=== PATIENT | male | born 1945 | race African-American/Black ===

== ENCOUNTER 2017-12-24 08:47 | Inpatient (IN) | payer MEDICARE, OTHER ==
[2017-12-24] MEDS ORDERED: HYDROMORPHONE HCL INJ/PF 2 MG/ML AMPULE IV ONE (10:06)
--- NOTE | 2017-12-24 10:17 | ER Document Report ---
ED General <GEETA LOPEZ - Last Filed: 12/24/17 14:02> - General Information source: Patient TRAVEL OUTSIDE OF THE [place] IN LAST 30 DAYS: No <LIANG BOWMAN - Last Filed: 12/24/17 14:12> - General Chief Complaint: Numbness Stated Complaint: RIGHT ARM NUMBNESS Time Seen by Provider: 12/24/17 09:54 Notes: 72-year-old male who presents to the emergency department today with complaints of a fall that occurred prior to arrival. Patient states he was sitting on the toilet and attempted to get up and he just fell forward. Patient states he had no symptoms prior to this fall. Patient states he was not injured in this fall. Patient states that because of the fall he decided to come in today for things that have been happening for the last week. Patient goes on to mention that he has had shortness of breath for 1 week. (LIANG BOWMAN) - Related Data Allergies/Adverse Reactions: No Known Allergies Allergy (Verified 12/24/17 09:51) Past Medical History - General Information source: Patient - Social History Smoking Status: Never Smoker Cigarette use (# per day): No Frequency of alcohol use: Rare Drug Abuse: None Lives with: Family Family History: Reviewed & Not Pertinent Patient has suicidal ideation: No Patient has homicidal ideation: No - Past Medical History Cardiac Medical History: Reports: Hx Hypercholesterolemia, Hx Hypertension Endocrine Medical History: Reports: Hx Diabetes Mellitus Type 2 GI Medical History: Reports: Hx Hiatal Hernia Past Surgical History: Reports: Hx Orthopedic Surgery - left knee replacement - Immunizations Hx Diphtheria, Pertussis, Tetanus Vaccination: Yes Hx Pneumococcal Vaccination: 02/20/11 <LIANG BOWMAN - Last Filed: 12/24/17 14:12> Review of Systems - Review of Systems Constitutional: No symptoms reported EENT: No symptoms reported Cardiovascular: No symptoms reported Respiratory: See HPI, Short of breath Gastrointestinal: No symptoms reported Genitourinary: No symptoms reported Male Genitourinary: No symptoms reported Musculoskeletal: No symptoms reported Skin: No symptoms reported Hematologic/Lymphatic: No symptoms reported Neurological/Psychological: See HPI, Other - intermittent right hand numbness -: Yes All other systems reviewed and negative <LIANG BOWMAN - Last Filed: 12/24/17 14:12> Physical Exam <GEETA LOPEZ - Last Filed: 12/24/17 14:02> <LIANG BOWMAN - Last Filed: 12/24/17 14:12> - Vital signs Vitals: Temp Pulse Resp BP Pulse Ox 97.7 F 94 22 H 109/52 L 95 12/24/17 09:00 12/24/17 09:00 12/24/17 09:00 12/24/17 09:00 12/24/17 09:00 - Notes Notes: Physical Exam: General: Alert, morbidly obese. HEENT: Normocephalic. Atraumatic. PERRL. Extraocular movements intact. Oropharynx clear. Neck: Supple. Non-tender. Respiratory: Mild respiratory distress. Tachypneic with wheezing and rhonchi with forced cough. Cardiovascular: Regular rate and rhythm. Abdominal: Obese. Non-tender. No distension. Normal Bowel Sounds. Back: Non-tender. No deformity or step off. Extremities: Moves all four extremities. Upper extremities: Normal inspection. Normal ROM. Lower extremities: Trace lower extremity edema. Normal ROM. Neurological: Normal cognition. AAOx4. Normal speech. Psychological: Normal affect. Normal Mood. Skin: Warm. Dry. Normal color. (LIANG BOWMAN) Course - Laboratory Result Diagrams: 12/24/17 10:10 12/24/17 10:10 - Diagnostic Test Radiology reviewed: Reports reviewed - Large right upper lobe airspace disease worrisome for pneumonia, possibly postobstructive due to hilar or endobronchial lesion - EKG Interpretation by Me EKG shows normal: Sinus rhythm, [place], Intervals, QRS Complexes, ST-T Waves Rate: Normal - 93 Rhythm: NSR, PVC's [place]/QRS: RBBB, LPHB/LPFB When compared to previous EKG there are: Previous EKG unavailable - Consults Dr. Armas Time consulted: 12:35 Consulted provider: other - He is currently at lunch. When he gets back to the office in 1 hour, he will call me with the patient's most recent lab work that was done last week. <GEETA LOPEZ - Last Filed: 12/24/17 14:02> - Laboratory Result Diagrams: 12/24/17 10:10 12/24/17 10:10 <LIANG BOWMAN - Last Filed: 12/24/17 14:12> - Vital Signs Vital signs: Temp Pulse Resp BP Pulse Ox 97.8 F 94 24 H 94/67 L 98 12/24/17 12:43 12/24/17 09:00 12/24/17 12:01 12/24/17 12:00 12/24/17 12:01 - Laboratory Laboratory results interpreted by me: 12/24/17 12/24/17 12/24/17 10:10 10:10 10:10 WBC 12.0 H Hgb 11.8 L Hct 36.8 L MCH 26.6 L RDW 14.5 H Seg Neutrophils % 85.1 H Lymphocytes % 6.9 L Absolute Neutrophils 10.2 H D-Dimer 2.16 H BUN 52 H Creatinine 3.84 H Est GFR ( Amer) 19 L Est GFR (Non-Af Amer) 16 L Glucose 74 L Direct Bilirubin 0.5 H AST 86 H Creatine Kinase 773 H CK-MB (CK-2) NT-Pro-B Natriuret Pep 12/24/17 12/24/17 12/24/17 10:10 12:55 12:55 WBC Hgb Hct MCH RDW Seg Neutrophils % Lymphocytes % Absolute Neutrophils D-Dimer BUN Creatinine Est GFR ( Amer) Est GFR (Non-Af Amer) Glucose Direct Bilirubin AST Creatine Kinase 736 H CK-MB (CK-2) 8.46 H 10.90 H NT-Pro-B Natriuret Pep 2700 H Critical Care Note - Critical Care Note Total time excluding time spent on procedures (mins): 40 <GEETA LOPEZ - Last Filed: 12/24/17 14:02> Discharge - Discharge Admitting Provider: Armas Unit Admitted: [facility] <GEETA LOPEZ - Last Filed: 12/24/17 14:02> <LIANG BOWMAN - Last Filed: 12/24/17 14:12> - Discharge Clinical Impression: Dyspnea on exertion, Non-STEMI (non-ST elevated myocardial infarction), Dehydration Accident due to mechanical fall without injury Qualifiers: Encounter type: initial encounter Qualified Code(s): W19.XXXA - Unspecified fall, initial encounter Acute renal failure Qualifiers: Acute renal failure type: unspecified Qualified Code(s): N17.9 - Acute kidney failure, unspecified Chronic renal insufficiency Qualifiers: Chronic kidney disease stage: stage 3 (moderate) Qualified Code(s): N18.3 - Chronic kidney disease, stage 3 (moderate) Hypotension Qualifiers: Hypotension type: unspecified hypotension type Qualified Code(s): I95.9 - Hypotension, unspecified Condition: Stable Disposition: ADMITTED INPATIENT Referrals: MARILYN ARMAS MD [Primary Care Provider] - Follow up as needed Scribe Attestation: 12/24/17 10:38 I personally performed the services described in the documentation, reviewed and edited the documentation which was dictated to the scribe in my presence, and it accurately records my words and actions. (GEETA LOPEZ) Scribe Documentation - Scribe Written by Scrfrancae:: Ines Trivedi, 12/24/2017 1412 acting as scribe for :: Harrison <LIANG BOWMAN - Last Filed: 12/24/17 14:12>
[2017-12-24 10:34] LABS: ABSOLUTE LYMPHOCYTES (AUTO) 0.8 10^3/uL (0.5-4.7); ABSOLUTE MONOCYTES (AUTO) 0.9 10^3/uL (0.1-1.4); ABSOLUTE NEUT (AUTO) 10.2 10^3/uL (1.7-8.2); BASOPHILS % (AUTO) 0.1 % (0-2); HEMATOCRIT 36.8 % (37.9-51.0); HEMOGLOBIN 11.8 g/dL (13.5-17.0); LYMPHOCYTES % (AUTO) 6.9 % (13-45); MEAN CORPUSCULAR HEMOGLOBIN 26.6 pg (27.0-33.4); MEAN CORPUSCULAR HGB CONC 32.1 g/dL (32.0-36.0); MEAN CORPUSCULAR VOLUME 83 fl (80-97); MONOCYTES % (AUTO) 7.9 % (3-13); PLATELET COUNT 221 10^3/uL (150-450); RED BLOOD COUNT 4.45 10^6/uL (4.35-5.55); RED CELL DISTRIBUTION WIDTH 14.5 % (11.5-14.0); SEGMENTED NEUTROPHILS % (AUTO) 85.1 % (42-78); TOTAL CELLS COUNTED % (AUTO) 100 %
--- NOTE | 2017-12-24 10:47 | RADIOLOGY REPORT (SQ) ---
EXAM DESCRIPTION: CHEST SINGLE VIEW COMPLETED DATE/TIME: 12/24/2017 10:33 am REASON FOR STUDY: SOB, SANTOS COMPARISON: 03/24/2011 EXAM PARAMETERS: NUMBER OF VIEWS: One view. TECHNIQUE: Single frontal radiographic view of the chest acquired. RADIATION DOSE: NA LIMITATIONS: AP portable lordotic film FINDINGS: LUNGS AND PLEURA: Diffuse airspace disease throughout the right upper lobe worrisome for p neumonia. This should be followed to radiographic clearing, to exclude postobstructive pneumonia fro m right hilar or endobronchial lesion. Remainder of the lungs are well inflated and clear. No pleural effusion. No pneumothorax. MEDIASTINUM AND HILAR STRUCTURES: Grossly normal, AP portable film HEART AND VASCULAR STRUCTURES: Heart normal in size. Normal vasculature. BONES: No acute findings. HARDWARE: None in the chest. OTHER: No other significant finding. IMPRESSION: Diffuse right upper lobe airspace disease worrisome for pneumonia. This should be follo wed to radiographic clearing, to exclude postobstructive pneumonia from right hilar or endobronchial lesion TECHNICAL DOCUMENTATION: JOB ID: [id number] [address]- All Rights Reserved Reading location - IP/workstation name: [email or web address]
[2017-12-24 10:52] LABS: ALANINE AMINOTRANSFERASE 57 U/L (21-72); ALBUMIN 3.7 g/dL (3.5-5.0); ALKALINE PHOSPHATASE 74 U/L (38-126); ANION GAP 16 (5-19); ASPARTATE AMINO TRANSFERASE 86 U/L (17-59); BILIRUBIN,DIRECT 0.5 mg/dL (0.0-0.4); BILIRUBIN,TOTAL 0.5 mg/dL (0.2-1.3); BLOOD UREA NITROGEN 52 mg/dL (7-20); CALCIUM 8.9 mg/dL (8.4-10.2); CARBON DIOXIDE 22 mmol/L (22-30); CHLORIDE 100 mmol/L (98-107); CREATINE KINASE 773 U/L (55-170); GLUCOSE 74 mg/dL (75-110); POTASSIUM 4.1 mmol/L (3.6-5.0); SODIUM 137.5 mmol/L (137-145); TOTAL PROTEIN 7.3 g/dL (6.3-8.2)
[2017-12-24] MEDS ORDERED: IPRATROPIUM/ALBUTEROL 0.5-2.5 MG/3 ML AMPUL NEB ONE (10:55)
[2017-12-24 11:03] LABS: CREATINE KINASE MB 8.46 ng/mL (<4.55)
[2017-12-24 11:05] LABS: TROPONIN I 0.515 ng/mL
[2017-12-24] MEDS ORDERED: LEVOFLOXACIN 750 MG/D5W RTU 750 MG/150 ML RTUPB IV ONE (11:31)
[2017-12-24] MEDS ORDERED: NORMAL SALINE 1000 ML 1,000 ML IV ONE (12:39)
[2017-12-24] MEDS ORDERED: ALBUTEROL SULFATE 0.083% NEB 2.5 MG/3 ML AMPUL NEB ONE (12:39)
--- NOTE | 2017-12-24 12:42 | EKG REPORT ---
SEVERITY:- ABNORMAL ECG - SINUS RHYTHM NONSPECIFIC INFERIOR ST CHANGES RBBB AND LPFB : Confirmed by: Will Marquez MD 24-Dec-2017 12:41:35
[2017-12-24 13:43] LABS: CREATINE KINASE MB 10.9 ng/mL (<4.55); TROPONIN I 0.58 ng/mL
[2017-12-24] MEDS ORDERED: ENOXAPARIN SODIUM INJ 150 MG/1 ML DISP.SYRIN SUBCUT ONE (14:00)
[2017-12-24] MEDS ORDERED: CEFTRIAXONE 1 GM/D5W RTU 50 ML IV SCH (15:00)
[2017-12-24] MEDS: 1/2 NORMAL SALINE 1,000 ML IV PRN (15:29)
--- NOTE | 2017-12-24 15:46 | RADIOLOGY REPORT (SQ) ---
EXAM DESCRIPTION: NM LUNG VENT/PERF SCAN COMPLETED DATE/TIME: 12/24/2017 3:25 pm REASON FOR STUDY: Elevated d-dimer, dyspnea on exertion COMPARISON: Chest x-ray 12/24/2017 RADIONUCLIDE AND DOSE: 5 millicuries TC-99m MAA Intravenous 30 millicuries TC-99m DTPA Inhaled aerosol TECHNIQUE: Eight views of the lungs acquired post ventilation of DTPA aerosol. Eight matching views of the lungs acquired following injection of MAA. LIMITATIONS: None. FINDINGS: VENTILATION: There is decreased ventilation in the the right upper lobe corresponding to t he infiltrate seen on the chest x-ray. PERFUSION: There is slightly decreased for effusion in the right upper lobe. OTHER: No other significant finding. IMPRESSION: 1. There is decreased ventilation and perfusion in the right upper lobe that appears to correspond to the infiltrates seen on the chest x-ray. 2. There is a low probability of pulmonary embolus. TECHNICAL DOCUMENTATION: JOB ID: [id number] [employer]- All Rights Reserved Reading location - IP/workstation name: [email or web address]
[2017-12-24 17:57] LABS: AMORPHOUS SEDIMENT,URINE TRACE /HPF; APPEARANCE,URINE SLIGHTLY-CLOUDY; BILIRUBIN,URINE NEGATIVE (NEGATIVE); COLOR,URINE YELLOW; GLUCOSE, URINE NEGATIVE (NEGATIVE); KETONES,URINE NEGATIVE (NEGATIVE); LEUKOCYTE ESTERASE,URINE NEGATIVE (NEGATIVE); NITRITE,URINE NEGATIVE (NEGATIVE); PROTEIN,URINE 30 mg/dL (NEGATIVE); URINE SPECIFIC GRAVITY 1.011; UROBILINOGEN,URINE NEGATIVE mg/dL (<2.0)
[2017-12-24] MEDS ORDERED: CEFTRIAXONE SODIUM 1,000 MG in NORMAL SALINE 50 ML IV SCH (18:00)
[2017-12-24] MEDS: BUSPIRONE HCL 10 MG TABLET PO SCH (20:13)
[2017-12-24] MEDS ORDERED: ATORVASTATIN CALCIUM 40 MG TABLET PO SCH (22:00)
--- NOTE | 2017-12-24 23:09 | RADIOLOGY REPORT (SQ) ---
EXAM DESCRIPTION: CT HEAD WITHOUT IV CONTRAST COMPLETED DATE/TME: 12/24/2017 00:00 CLINICAL HISTORY: 72 years, Male, Rule out CVA. Additional provided history of right hemiparesis that started today at 3 pm. COMPARISON: 03/24/2011 TECHNIQUE: Contiguous axial images of the brain were obtained without the administration of intravenous contrast. Images stored on PACS. All CT scanners at this facility use dose modulation, iterative reconstruction, and/or weight based dosing when appropriate to reduce radiation dose to as low as reasonably achievable (ALARA). [facility]: Dose Right [facility]: CareDose [facility]: Dose Right [facility]: Teradose 4D [facility]: Firmafon LIMITATIONS: Patient motion FINDINGS: Brain: No acute intracranial hemorrhage. No territorial infarct. No mass effect. Mild cerebral atrophy. Mild periventricular and subcortical white matter hypodensity most suggestive of small vessel disease. Ventricles: Accounting for underlying cerebral atrophy, ventricular size appears within normal limits. Bones: No acute osseous finding. Paranasal sinuses: Well aerated. Mastoid air cells: Well aerated. Soft tissues: Within normal limits Weatherization Operations Manager view shows no additional significant finding IMPRESSION: 1. No acute intracranial finding. If high clinical suspicion for acute ischemia and if clinically indicated, consider additional imaging with brain MRI. 2. Cerebral atrophy and parenchymal findings suggesting chronic small vessel disease. Findings were discussed by Dr. Jeison Tian via telephone with MARILYN LLOYD MD on 12/24/2017 10:02 PM CDT. TECHNICAL DOCUMENTATION: Quality ID # 436: Final reports with documentation of one or more dose reduction techniques (e.g., Automated exposure control, adjustment of the mA and/or kV according to patient size, use of iterative reconstruction technique) 2010 [employer]- All Rights Reserved
--- NOTE | 2017-12-24 23:21 | PDOC H&P ---
History of Present Illness Admission Date/PCP: MARILYN LLOYD MD Patient complains of: 1w dyspnea. fell into tub at 7am History of Present Illness: CAROLYN CHOPRA is a 72 year old male with diabetes who stood up from toilet and fell face first into tub. He was unable to get up. ER noted RML pneumonia and NSTEmi. He received levaquin. Lovenox was started at 2pm. noted slurred speech and R hand clumsiness around 3pm. I ordered buspar for anxiety at 8pm. I was called about R hemiparesis at 10pm. Past Medical History Cardiac Medical History: Reports: Hyperlipidema, Hypertension Pulmonary Medical History: Denies: Tuberculosis Neurological Medical History: Reports: None Endocrine Medical History: Reports: Diabetes Mellitus Type 2 Renal/ Medical History: Reports: Chronic Kidney Disease Malignancy Medical History: Reports: None GI Medical History: Reports: Hiatal Hernia Musculoskeltal Medical History: Reports: None Psychiatric Medical History: Reports: None Past Surgical History Past Surgical History: Reports: Orthopedic Surgery - left knee replacement Denies: Pacemaker Social History Smoking Status: Current Some Day Smoker Hx Recreational Drug Use: No Hx Prescription Drug Abuse: No Family History Family History: DM, Hyperlipidemia, Hypertension Parental Family History Reviewed: Yes Children Family History Reviewed: Yes Sibling(s) Family History Reviewed.: Yes Medication/Allergy Home Medications: Allopurinol [Zyloprim] 300 mg PO DAILY 12/24/17 Amlodipine Besylate [Norvasc 5 mg Tablet] 5 mg PO DAILY 12/24/17 Aspirin [Ecotrin] 81 mg PO DAILY 12/24/17 Glimepiride [Amaryl 4 mg Tablet] 4 mg PO DAILY 12/24/17 Losartan/Hydrochlorothiazide [Losartan-Hctz 100-25 mg Tab] 1 tab PO DAILY Naproxen/Esomeprazole Mag [Vimovo Dr 500-20 mg Tablet] 1 tab PO Q12 12/24/17 Rosuvastatin Calcium [Crestor] 40 mg PO DAILY 12/24/17 Allergies/Adverse Reactions: No Known Allergies Allergy (Verified 12/24/17 09:51) Review of Systems ROS unobtainable: Due to mental status Physical Exam Vital Signs: Temp Pulse Resp BP Pulse Ox 97.8 F 94 24 H 94/67 L 98 12/24/17 12:43 12/24/17 09:00 12/24/17 12:01 12/24/17 12:00 12/24/17 12:01 Intake & Output 12/23/17 12/24/17 12/25/17 07:59 07:59 07:59 Intake Total 1470 Balance 1470 Weight 294 lb 15.656 oz General appearance: PRESENT: mild distress Eye exam: PRESENT: EOMI. ABSENT: conjunctival injection, nystagmus, scleral icterus Mouth exam: PRESENT: moist, tongue midline Neck exam: ABSENT: lymphadenopathy, meningismus, tenderness, thyromegaly, tracheal deviation Respiratory exam: ABSENT: clear to auscultation hoang Cardiovascular exam: ABSENT: diastolic murmur, irregular rhythm, systolic murmur GI/Abdominal exam: ABSENT: mass, organolmegaly, tenderness Extremities exam: ABSENT: pedal edema Neurological exam: PRESENT: alert, altered, motor sensory deficit - Cant follow commands. Mild R facial droop. No gaze abnormality. Pupils equal. R arm & leg fall to bed immediately., aphasic, other - NIH:conscious0 orientation0 commands1 gaze0 steven? face1 mtrArms R3L2 mtrLegs R3L2 ataxia2+2 sensory R2 TOTAL18. ABSENT: reflexes normal - no R knee jerks Psychiatric exam: PRESENT: agitated Results Laboratory Results: 12/24/17 10:10 12/24/17 10:10 12/24/17 12/24/17 10:10 10:10 WBC 12.0 H RBC 4.45 Hgb 11.8 L Hct 36.8 L MCV 83 MCH 26.6 L MCHC 32.1 RDW 14.5 H Plt Count 221 Seg Neutrophils % 85.1 H Lymphocytes % 6.9 L Monocytes % 7.9 Eosinophils % 0.0 Basophils % 0.1 Absolute Neutrophils 10.2 H Absolute Lymphocytes 0.8 Absolute Monocytes 0.9 Absolute Eosinophils 0.0 Absolute Basophils 0.0 Sodium 137.5 Potassium 4.1 Chloride 100 Carbon Dioxide 22 Anion Gap 16 BUN 52 H Creatinine 3.84 H Est GFR ( Amer) 19 L Est GFR (Non-Af Amer) 16 L Glucose 74 L Calcium 8.9 Total Bilirubin 0.5 AST 86 H ALT 57 Alkaline Phosphatase 74 Total Protein 7.3 Albumin 3.7 12/24/17 12/24/17 12/24/17 10:10 10:10 12:55 Creatine Kinase 773 H 736 H CK-MB (CK-2) 8.46 H Troponin I 0.515 NT-Pro-B Natriuret Pep 2700 H 12/24/17 12:55 Creatine Kinase CK-MB (CK-2) 10.90 H Troponin I 0.580 NT-Pro-B Natriuret Pep Impressions: Chest X-Ray 12/24/17 10:07 IMPRESSION: Diffuse right upper lobe airspace disease worrisome for pneumonia. 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 CT normal now. Too late for tpa. Continue lovenox. (2) Non-STEMI (non-ST elevated myocardial infarction) Is this a current diagnosis for this admission?: Yes (3) Community acquired pneumonia of right upper lobe of lung Is this a current diagnosis for this admission?: Yes Plan: ceftri (4) Type 2 diabetes mellitus with diabetic chronic kidney disease Qualifiers: Diabetes mellitus manager intermediate insulin use: without group home use Chronic kidney disease stage: stage 4 (severe) Qualified Code(s): E11.22 - Type 2 diabetes mellitus with diabetic chronic kidney disease; N18.4 - Chronic kidney disease, stage 4 (severe); N18.4 - Chronic kidney disease, stage 4 (severe); N18.4 - Chronic kidney disease, stage 4 (severe); N18.4 - Chronic kidney disease , stage 4 (severe) Is this a current diagnosis for this admission?: Yes (5) Essential (primary) hypertension Is this a current diagnosis for this admission?: Yes (6) Idiopathic chronic gout of multiple sites without tophus Is this a current diagnosis for this admission?: Yes - Inpatient Certification Based on my medical assessment, after consideration of the patient's comorbidities, presenting symptoms, or acuity I expect that the services needed warrant INPATIENT care.: Yes I certify that my determination is in accordance with my understanding of Medicare's requirements for reasonable and necessary INPATIENT services [42 CFR 412.3e].: Yes Medical Necessity: Significant Comorbidiites Make Outpatient Treatment Too Risky , Need Close Monitoring Due to Risk of Patient Decompensation, Need For IV Fluids, Need For Continuous Telemetry Monitoring, Need for IV Antibiotics, Risk of Complication if Not Cared For in Hospital, Risk of Diagnosis Which Will Require Inpatient Eval/Care/Monitoring
[2017-12-24] MEDS ORDERED: DEXTROSE 40% GEL 15 GM TUBE PO PRN ×2 (23:23)
[2017-12-24] MEDS ORDERED: GLUCAGON,HUMAN RECOMB 1 MG INJ SUBCUT PRN (23:23)
[2017-12-24] MEDS ORDERED: DEXTROSE 50%-WATER 25 GM/50 ML DISP.SYRIN IV PRN (23:23)
--- NOTE | 2017-12-24 23:26 | RADIOLOGY REPORT (SQ) ---
PROCEDURE: XR CHEST 1 VIEW HISTORY: Rule out CVA COMPARISON: Chest x-ray done on the same day at 10:28 AM TECHNIQUE: The study was done on 12/24/2017 at 10:42 PM Single projection of the chest was done. FINDINGS: There is interval appearance of small infiltrate/atelectasis in the right lower lung zone. Large infiltrate/atelectasis in the left upper and midlung zone remains unchanged. There is interval appearance of tiny left-sided pleural effusion . There are no pneumothoraces The cardiomediastinal silhouette is stable. IMPRESSION: There is interval appearance of small infiltrate/atelectasis in the right lower lung zone. Large infiltrate/atelectasis in the left upper and midlung zone remains unchanged. There is interval appearance of tiny left-sided pleural effusion .
--- NOTE | 2017-12-24 23:52 | PDOC PROGRESS REPORT ---
Subjective Progress Note for:: 12/24/17 Subjective:: coma. Bs34. Speech & motor improved with d50w but not normal. Reason For Visit: PNEUMONIA,NSTEMI Physical Exam Vital Signs: Temp Pulse Resp BP Pulse Ox 97.7 F 92 24 H 120/70 95 12/24/17 18:45 12/24/17 19:00 12/24/17 18:45 12/24/17 18:45 12/24/17 18:45 Intake & Output 12/23/17 12/24/17 12/25/17 07:59 07:59 07:59 Intake Total 320 Balance 320 Weight 296 lb 15.402 oz Neurological exam: PRESENT: motor sensory deficit - R barre'+. R leg drift. Dysarthria. Results Laboratory Results: 12/24/17 17:36 Urine Color YELLOW Urine Appearance SLIGHTLY-CLOUDY Urine pH 5.0 Ur Specific David 1.011 Urine Protein 30 H Urine Glucose (UA) NEGATIVE Urine Ketones NEGATIVE Urine Blood MODERATE H Urine Nitrite NEGATIVE Ur Leukocyte Esterase NEGATIVE Urine WBC (Auto) 4 Urine RBC (Auto) 2 12/24/17 12/24/17 15:38 21:18 Troponin I 0.565 0.532 Impressions: Head CT 12/24/17 00:00 IMPRESSION: 1. No acute intracranial finding. If high clinical suspicion for acute ischemia and if clinically indicated, consider additional imaging with brain MRI. 2. Cerebral atrophy and parenchymal findings suggesting chronic small vessel disease. Findings were discussed by Dr. Jeison Tian via telephone with AMRILYN LLOYD MD on 12/24/2017 10:02 PM CDT. TECHNICAL DOCUMENTATION: Quality ID # [id number]: Final reports with documentation of one or more dose reduction techniques (e.g., Automated exposure control, adjustment of the mA and/or kV according to patient size, use of iterative reconstruction technique) 2010 [employer]- All Rights Reserved Chest X-Ray 12/24/17 10:07 IMPRESSION: Diffuse right upper lobe airspace disease worrisome for pneumonia. This should be followed to radiographic clearing, to exclude postobstructive pneumonia from right hilar or endobronchial lesion Lung Scan-VQ NM 12/24/17 14:01 IMPRESSION: 1. There is decreased ventilation and perfusion in the right upper lobe that appears to correspond to the infiltrates seen on the chest x- ray. 2. There is a low probability of pulmonary embolus. 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 Is this a current diagnosis for this admission?: Yes (2) Non-STEMI (non-ST elevated myocardial infarction) Is this a current diagnosis for this admission?: Yes (3) Community acquired pneumonia of right upper lobe of lung Is this a current diagnosis for this admission?: Yes (4) Type 2 diabetes mellitus with diabetic chronic kidney disease Qualifiers: Diabetes mellitus terminal gauger supervisor insulin use: without intermediate use Chronic kidney disease stage: stage 4 (severe) Qualified Code(s): E11.22 - Type 2 diabetes mellitus with diabetic chronic kidney disease; N18.4 - Chronic kidney disease, stage 4 (severe); N18.4 - Chronic kidney disease, stage 4 (severe); N18.4 - Chronic kidney disease, stage 4 (severe); N18.4 - Chronic kidney disease , stage 4 (severe) Is this a current diagnosis for this admission?: Yes Plan: AM glymepiride 4mg. Bs74 at 10am. Ate lunch. Had trouble eating some dinner. (5) Essential (primary) hypertension Is this a current diagnosis for this admission?: Yes (6) Idiopathic chronic gout of multiple sites without tophus Is this a current diagnosis for this admission?: Yes
[2017-12-25] MEDS: DEXTROSE 50%-WATER 25 GM/50 ML DISP.SYRIN IV PRN ×5 (00:36→16:18)
[2017-12-25] MEDS: 1/2 NORMAL SALINE 1,000 ML IV PRN (00:38)
[2017-12-25] MEDS ORDERED: IPRATROPIUM/ALBUTEROL 0.5-2.5 MG/3 ML AMPUL NEB ONE (00:56)
[2017-12-25] MEDS ORDERED: HYDRALAZINE HCL 10 MG TABLET PO PRN (01:01)
[2017-12-25] MEDS: IPRATROPIUM/ALBUTEROL 0.5-2.5 MG/3 ML AMPUL NEB PRN ×2 (01:07→06:13)
[2017-12-25] MEDS ORDERED: HYDRALAZINE HCL INJ/PF 20 MG/1 ML SDV IV PRN (01:11)
[2017-12-25 03:25] LABS: HEMATOCRIT 34.2 % (37.9-51.0); HEMOGLOBIN 11.2 g/dL (13.5-17.0); MEAN CORPUSCULAR HEMOGLOBIN 26.7 pg (27.0-33.4); MEAN CORPUSCULAR HGB CONC 32.6 g/dL (32.0-36.0); MEAN CORPUSCULAR VOLUME 82 fl (80-97); PLATELET COUNT 208 10^3/uL (150-450); RED BLOOD COUNT 4.18 10^6/uL (4.35-5.55); RED CELL DISTRIBUTION WIDTH 14.5 % (11.5-14.0); WHITE BLOOD COUNT 10.4 10^3/uL (4.0-10.5)
[2017-12-25 03:57] LABS: ANION GAP 15 (5-19); BLOOD UREA NITROGEN 54 mg/dL (7-20); CALCIUM 8.1 mg/dL (8.4-10.2); CARBON DIOXIDE 20 mmol/L (22-30); CHLORIDE 99 mmol/L (98-107); POTASSIUM 4.3 mmol/L (3.6-5.0); SODIUM 133.6 mmol/L (137-145)
[2017-12-25 04:10] LABS: GLUCOSE 39 mg/dL (75-110)
[2017-12-25] MEDS ORDERED: DEXTROSE 5%-NORMAL SALINE 1,000 ML IV PRN (05:34)
[2017-12-25] MEDS: BUSPIRONE HCL 10 MG TABLET PO SCH ×2 (05:50→16:14)
--- NOTE | 2017-12-25 07:33 | EKG REPORT ---
SEVERITY:- ABNORMAL ECG - SINUS RHYTHM RIGHT BUNDLE BRANCH BLOCK : Confirmed by: Will Marquez MD 25-Dec-2017 07:32:24
--- NOTE | 2017-12-25 08:24 | PDOC PROGRESS REPORT ---
Subjective Progress Note for:: 12/25/17 Subjective:: moving & talking better but dyspnea Reason For Visit: PNEUMONIA,NSTEMI Physical Exam Vital Signs: Temp Pulse Resp BP Pulse Ox 98.2 F 100 23 H 109/64 94 12/25/17 04:49 12/25/17 06:32 12/25/17 06:32 12/25/17 06:06 12/25/17 06:32 Intake & Output 12/24/17 12/25/17 12/26/17 07:59 07:59 07:59 Intake Total 1320 Output Total 0 Balance 1320 Weight 300 lb 0.786 oz General appearance: PRESENT: mild distress Respiratory exam: PRESENT: wheezes Cardiovascular exam: ABSENT: diastolic murmur, irregular rhythm, systolic murmur GI/Abdominal exam: ABSENT: mass, organolmegaly, tenderness Extremities exam: ABSENT: pedal edema Neurological exam: PRESENT: oriented to situation, other - grip5 [place] & dorsiflexion ok Psychiatric exam: PRESENT: anxious Results Laboratory Results: 12/25/17 03:20 12/25/17 03:20 12/24/17 12/25/17 12/25/17 17:36 03:20 03:20 WBC 10.4 RBC 4.18 L Hgb 11.2 L Hct 34.2 L MCV 82 MCH 26.7 L MCHC 32.6 RDW 14.5 H Plt Count 208 Sodium 133.6 L Potassium 4.3 Chloride 99 Carbon Dioxide 20 L Anion Gap 15 BUN 54 H Creatinine 3.92 H Est GFR ( Amer) 18 L Est GFR (Non-Af Amer) 15 L Glucose 39 L* Calcium 8.1 L Urine Color YELLOW Urine Appearance SLIGHTLY-CLOUDY Urine pH 5.0 Ur Specific [place] 1.011 Urine Protein 30 H Urine Glucose (UA) NEGATIVE Urine Ketones NEGATIVE Urine Blood MODERATE H Urine Nitrite NEGATIVE Ur Leukocyte Esterase NEGATIVE Urine WBC (Auto) 4 Urine RBC (Auto) 2 12/24/17 12/24/17 12/25/17 15:38 21:18 03:20 Troponin I 0.565 0.532 0.567 Impressions: Head CT 12/24/17 00:00 IMPRESSION: 1. No acute intracranial finding. If high clinical suspicion for acute ischemia and if clinically indicated, consider additional imaging with brain MRI. 2. Cerebral atrophy and parenchymal findings suggesting chronic small vessel disease. Findings were discussed by Dr. Jeison Tian via telephone with MARILYN LLOYD MD on 12/24/2017 10:02 PM CDT. TECHNICAL DOCUMENTATION: Quality ID # 436: Final reports with documentation of one or more dose reduction techniques (e.g., Automated exposure control, adjustment of the mA and/or kV according to patient size, use of iterative reconstruction technique) 2010 [employer]- All Rights Reserved Chest X-Ray 12/24/17 10:07 IMPRESSION: Diffuse right upper lobe airspace disease worrisome for pneumonia. This should be followed to radiographic clearing, to exclude postobstructive pneumonia from right hilar or endobronchial lesion Lung Scan-VQ NM 12/24/17 14:01 IMPRESSION: 1. There is decreased ventilation and perfusion in the right upper lobe that appears to correspond to the infiltrates seen on the chest x- ray. 2. There is a low probability of pulmonary embolus. 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 Is this a current diagnosis for this admission?: Yes Plan: sugar dropped again. D10 hung. (2) Non-STEMI (non-ST elevated myocardial infarction) Is this a current diagnosis for this admission?: Yes Plan: troponin peaked at 0.6 (3) Community acquired pneumonia of right upper lobe of lung Is this a current diagnosis for this admission?: Yes Plan: bipap. Consult Dr Whipple. (4) Type 2 diabetes mellitus with diabetic chronic kidney disease Qualifiers: Diabetes mellitus residential insulin use: without residential use Chronic kidney disease stage: stage 4 (severe) Qualified Code(s): E11.22 - Type 2 diabetes mellitus with diabetic chronic kidney disease; N18.4 - Chronic kidney disease, stage 4 (severe); N18.4 - Chronic kidney disease, stage 4 (severe); N18.4 - Chronic kidney disease, stage 4 (severe); N18.4 - Chronic kidney disease , stage 4 (severe) Is this a current diagnosis for this admission?: Yes Plan: cr3.9 inspite of hydration (5) Essential (primary) hypertension Is this a current diagnosis for this admission?: Yes (6) Idiopathic chronic gout of multiple sites without tophus Is this a current diagnosis for this admission?: Yes
[2017-12-25] MEDS ORDERED: DEXTROSE 10%-WATER 1,000 ML IV PRN (09:14)
[2017-12-25 09:46] LABS: ARTERIAL BLOOD BASE EXCESS -7.1 mmol/L; ARTERIAL BLOOD HCO3 18.9 mmol/L (20-24); ARTERIAL BLOOD O2 SATURATION 93.4 % (94-98); ARTERIAL BLOOD PCO2 39.9 mmHg (35-45); ARTERIAL BLOOD PH 7.29 (7.35-7.45); ARTERIAL BLOOD PO2 74.2 mmHg (80-100); ARTERIAL BLOOD TOTAL CO2 20.1 mmol/L (23-27)
[2017-12-25 09:54] LABS: ARTERIAL BLOOD FIO2 30%
[2017-12-25] MEDS ORDERED: ASPIRIN 81 MG TABLET, CHEWABLE PO SCH (10:00)
[2017-12-25] MEDS ORDERED: FUROSEMIDE INJ/PF 100 MG/10 ML SDV ONE (10:04)
[2017-12-25] MEDS ORDERED: MORPHINE SULFATE 10 MG/ML INJ ONE (10:05)
[2017-12-25] MEDS ORDERED: MORPHINE SULFATE 10 MG/ML INJ IV PRN (10:07)
[2017-12-25 10:14] LABS: ALANINE AMINOTRANSFERASE 58 U/L (21-72); ALBUMIN 3.3 g/dL (3.5-5.0); ALKALINE PHOSPHATASE 72 U/L (38-126); ANION GAP 15 (5-19); ASPARTATE AMINO TRANSFERASE 94 U/L (17-59); BILIRUBIN,DIRECT 0.4 mg/dL (0.0-0.4); BILIRUBIN,TOTAL 0.4 mg/dL (0.2-1.3); BLOOD UREA NITROGEN 54 mg/dL (7-20); CALCIUM 8.3 mg/dL (8.4-10.2); CARBON DIOXIDE 19 mmol/L (22-30); CHLORIDE 99 mmol/L (98-107); GLUCOSE 114 mg/dL (75-110); POTASSIUM 4.3 mmol/L (3.6-5.0); SODIUM 132.6 mmol/L (137-145); TOTAL PROTEIN 6.5 g/dL (6.3-8.2)
[2017-12-25] MEDS ORDERED: FUROSEMIDE INJ/PF 40 MG/4 ML SDV IV ONE (10:15)
[2017-12-25 10:24] LABS: CREATINE KINASE MB 34.9 ng/mL (<4.55); TROPONIN I 0.626 ng/mL
[2017-12-25] MEDS ORDERED: NITROGLYCERIN 2% OINTMENT 1 GM PACKET TP SCH (11:00)
[2017-12-25] MEDS ORDERED: ENOXAPARIN SODIUM INJ 150 MG/1 ML DISP.SYRIN SUBCUT SCH (14:00)
[2017-12-25] MEDS ORDERED: LIDOCAINE 1% INJ-PF (10 MG/ML) 30 ML SDV ONE (15:24)
--- NOTE | 2017-12-25 15:29 | PDOC TRANSFER SUMMARY ---
General Admission Date/PCP: 12/24/17 14:04 MARILYN LLOYD MD Admission Date: 12/24/17 Transfer Date: 12/25/17 Accepting Facility: [facility] Resuscitation Status: Full Code - Transfer Diagnosis (1) Community acquired pneumonia of right upper lobe of lung Is this a current diagnosis for this admission?: Yes (2) Non-STEMI (non-ST elevated myocardial infarction) Is this a current diagnosis for this admission?: Yes (3) Type 2 diabetes mellitus with diabetic chronic kidney disease Is this a current diagnosis for this admission?: Yes (4) Essential (primary) hypertension Is this a current diagnosis for this admission?: Yes (5) Idiopathic chronic gout of multiple sites without tophus Is this a current diagnosis for this admission?: Yes - Transfer Medications Home Medications: Allopurinol [Zyloprim] 300 mg PO DAILY 12/24/17 Amlodipine Besylate [Norvasc 5 mg Tablet] 5 mg PO DAILY 12/24/17 Aspirin [Ecotrin] 81 mg PO DAILY 12/24/17 Glimepiride [Amaryl 4 mg Tablet] 4 mg PO DAILY 12/24/17 Losartan/Hydrochlorothiazide [Losartan-Hctz 100-25 mg Tab] 1 tab PO DAILY Naproxen/Esomeprazole Mag [Vimovo Dr 500-20 mg Tablet] 1 tab PO Q12 12/24/17 Rosuvastatin Calcium [Crestor] 40 mg PO DAILY 12/24/17 Transfer Medications: Current Medications Albuterol/Ipratropium (Duoneb 3 Ml Ampul) 3 ml NEB RTQ6HP PRN PRN Reason: SHORTNESS OF BREATH Stop: 01/24/18 01:00 Last Admin: 12/25/17 06:13 Dose: 3 ml Aspirin (Aspirin 81 Mg Chewable Tablet) 81 mg PO DAILY [facility] Stop: 01/24/18 09:59 Last Admin: 12/25/17 10:12 Dose: Not Given Atorvastatin Calcium (Lipitor 40 Mg Tablet) 40 mg PO QHS MALA Stop: 01/23/18 21:59 Last Admin: 12/25/17 00:38 Dose: Not Given Buspirone HCl (Buspar 10 Mg Tablet) 10 mg PO Q8 MALA Stop: 01/23/18 20:29 Last Admin: 12/25/17 05:50 Dose: Not Given Dextrose (Dextrose Inj 50% Syringe (25 Gm/50 Ml)) 12.5 gm IV PRN PRN; Protocol PRN Reason: FOR BG 50-69 IN ALERT PATIENT Stop: 01/23/18 23:22 Dextrose (Dextrose Inj 50% Syringe (25 Gm/50 Ml)) 25 gm IV PRN PRN; Protocol PRN Reason: See Label Comments Stop: 01/23/18 23:22 Last Admin: 12/25/17 08:41 Dose: 25 gm Enoxaparin Sodium (Lovenox Inj 150 Mg/1 Ml Disp.Syrin) 130 mg SUBCUT Q2PM MALA Stop: 01/24/18 13:59 Glucagon (Glucagen Inj 1 Mg Vial) 1 mg SUBCUT PRN PRN; Protocol PRN Reason: Evaluate for BG < 70 Stop: 01/23/18 23:22 Glucose (Glutose 40% Gel 15 Gm Tube) 15 gm PO PRN PRN; Protocol PRN Reason: For BG 50-69 in Alert Patient Stop: 01/23/18 23:22 Glucose (Glutose 40% Gel 15 Gm Tube) 30 gm PO PRN PRN; Protocol PRN Reason: FOR BG < 50 IN ALERT PATIENT Stop: 01/23/18 23:22 Hydralazine HCl (Apresoline Inj/Pf 20 Mg/1 Ml Sdv) 10 mg IV Q8HP PRN PRN Reason: SBP ABOVE 160 Stop: 01/24/18 01:10 Levofloxacin/Dextrose (Levaquin Rtu 500mg/D5w 100 Ml Premix) 500 mg in 100 mls @ 100 mls/hr IV Q2DAYS [facility] Stop: 01/02/18 09:59 Ceftriaxone Sodium 1,000 mg/ (Sodium Chloride) 50 mls @ 100 mls/hr IV QPM [facility] Stop: 12/31/17 17:59 Last Infusion: 12/25/17 09:43 Dose: Infused Dextrose (D10w 1000 Ml Iv Soln) 1,000 mls @ 60 mls/hr IV CONTINUOUS PRN PRN Reason: THIS MED IS NOT "PRN" Stop: 01/24/18 09:13 Last Infusion: 12/25/17 12:39 Dose: 100 mls/hr Morphine Sulfate (Morphine 10 Mg/Ml Inj) 2 mg IV Q6HP PRN PRN Reason: FOR ANXIETY Stop: 01/01/18 10:06 Nitroglycerin (Nitrol 2% Ointment 1gm Packet) 0.5 gm TP Q6 [facility] Stop: 01/24/18 10:59 Last Admin: 12/25/17 11:46 Dose: 0.5 gm Sodium Chloride (Saline Flush 2.5 Ml Monoject Prefil Syrin) 2.5 ml IV Q8 [facility] Stop: 01/23/18 21:59 Last Admin: 12/25/17 05:49 Dose: Not Given - Allergies Allergies/Adverse Reactions: No Known Allergies Allergy (Verified 12/24/17 09:51) - Diet/Activity Discharge Diet: As Tolerated Discharge Activity: Bedrest Hospital Course Hospital Course: In spite of ceftriaxone and levaquin, pneumonia spread widely. Bipap was switched to vent for transfer at Dr Whipple's suggestion. In spite of stopping glimepiride on arrival yesterday, his sugar fell to 30s twice. He had a R hemiparesis that cleared with glucagon around 11pm. Insulin level was 90 with no recent insulin. He is usually quite functional with baseline creatinine 1.8. It is now 3.9 inspite of hydration. He has been hemodynamically stable. Troponin has been less than 1. Physical Exam Vital Signs: Temp Pulse Resp BP Pulse Ox 97.9 F 87 19 110/68 100 12/25/17 12:00 12/25/17 12:00 12/25/17 14:06 12/25/17 14:06 12/25/17 14:05 Intake & Output 12/24/17 12/25/17 12/26/17 07:59 07:59 07:59 Intake Total 1320 1365 Output Total 0 400 Balance 1320 965 Weight 300 lb 0.786 oz 300 lb 0.786 oz General appearance: PRESENT: mild distress Respiratory exam: PRESENT: wheezes Cardiovascular exam: ABSENT: diastolic murmur, irregular rhythm, systolic murmur GI/Abdominal exam: ABSENT: mass, organolmegaly, tenderness Extremities exam: ABSENT: pedal edema Neurological exam: PRESENT: alert Psychiatric exam: PRESENT: anxious Results Laboratory Results: 12/25/17 03:20 12/25/17 09:27 12/24/17 12/25/17 12/25/17 17:36 03:20 03:20 WBC 10.4 RBC 4.18 L Hgb 11.2 L Hct 34.2 L MCV 82 MCH 26.7 L MCHC 32.6 RDW 14.5 H Plt Count 208 Carbonic Acid HCO3/H2CO3 Ratio ABG pH ABG pCO2 ABG pO2 ABG HCO3 ABG O2 Saturation ABG Base Excess FiO2 Sodium 133.6 L Potassium 4.3 Chloride 99 Carbon Dioxide 20 L Anion Gap 15 BUN 54 H Creatinine 3.92 H Est GFR ( Amer) 18 L Est GFR (Non-Af Amer) 15 L Glucose 39 L* Calcium 8.1 L Magnesium Total Bilirubin AST ALT Alkaline Phosphatase Total Protein Albumin Urine Color YELLOW Urine Appearance SLIGHTLY-CLOUDY Urine pH 5.0 Ur Specific [place] 1.011 Urine Protein 30 H Urine Glucose (UA) NEGATIVE Urine Ketones NEGATIVE Urine Blood MODERATE H Urine Nitrite NEGATIVE Ur Leukocyte Esterase NEGATIVE Urine WBC (Auto) 4 Urine RBC (Auto) 2 12/25/17 12/25/17 09:27 09:27 WBC RBC Hgb Hct MCV MCH MCHC RDW Plt Count Carbonic Acid 1.20 HCO3/H2CO3 Ratio 15:1 ABG pH 7.29 L ABG pCO2 39.9 ABG pO2 74.2 L ABG HCO3 18.9 L ABG O2 Saturation 93.4 L ABG Base Excess -7.1 FiO2 30% Sodium 132.6 L Potassium 4.3 Chloride 99 Carbon Dioxide 19 L Anion Gap 15 BUN 54 H Creatinine 4.35 H Est GFR ( Amer) 16 L Est GFR (Non-Af Amer) 14 L Glucose 114 H Calcium 8.3 L Magnesium 1.9 Total Bilirubin 0.4 AST 94 H ALT 58 Alkaline Phosphatase 72 Total Protein 6.5 Albumin 3.3 L Urine Color Urine Appearance Urine pH Ur Specific [place] Urine Protein Urine Glucose (UA) Urine Ketones Urine Blood Urine Nitrite Ur Leukocyte Esterase Urine WBC (Auto) Urine RBC (Auto) 12/24/17 12/24/17 12/25/17 15:38 21:18 03:20 Creatine Kinase CK-MB (CK-2) Troponin I 0.565 0.532 0.567 12/25/17 12/25/17 09:27 09:27 Creatine Kinase 2232 H CK-MB (CK-2) 34.90 H Troponin I 0.626 Impressions: Head CT 12/24/17 00:00 IMPRESSION: 1. No acute intracranial finding. If high clinical suspicion for acute ischemia and if clinically indicated, consider additional imaging with brain MRI. 2. Cerebral atrophy and parenchymal findings suggesting chronic small vessel disease. Findings were discussed by Dr. Jeison Tian via telephone with MARILYN LLOYD MD on 12/24/2017 10:02 PM CDT. TECHNICAL DOCUMENTATION: Quality ID # 436: Final reports with documentation of one or more dose reduction techniques (e.g., Automated exposure control, adjustment of the mA and/or kV according to patient size, use of iterative reconstruction technique) 2010 [employer]- All Rights Reserved Chest X-Ray 12/24/17 10:07 IMPRESSION: Diffuse right upper lobe airspace disease worrisome for pneumonia. This should be followed to radiographic clearing, to exclude postobstructive pneumonia from right hilar or endobronchial lesion Lung Scan-VQ NM 12/24/17 14:01 IMPRESSION: 1. There is decreased ventilation and perfusion in the right upper lobe that appears to correspond to the infiltrates seen on the chest x- ray. 2. There is a low probability of pulmonary embolus. Plan Discharge Plan: to [facility] and Dr Galan.
[2017-12-25] MEDS ORDERED: PROPOFOL 1,000 MG/100 ML INFUS..BTL IV ONE (15:43)
--- NOTE | 2017-12-25 16:10 | OPERATIVE REPORT E ---
Operative Report NAME: CAROLYN CHOPRA : 1945 AGE: 72Y DATE OF SURGERY: 12/25/2017 ROOM: 605 PREOPERATIVE DIAGNOSIS: POOR VEINS FOR IV ACCESS AND PATIENT NEEDED ICU MEDICATIONS, INCLUDING ANTIBIOTICS AND STEROIDS. POSTOPERATIVE DIAGNOSIS: POOR VEINS FOR IV ACCESS AND PATIENT NEEDED ICU MEDICATIONS, INCLUDING ANTIBIOTICS AND STEROIDS. PROCEDURE: Placement of left internal jugular vein under ultrasound guidance. SURGEON: IRIS MATAMOROS M.D. ANESTHESIA: Local INDICATION: This is a 72-year-old male who was admitted for sepsis and needed IV medications. The patient is ready to be transferred to [facility] but request was to have the patient a central line. DESCRIPTION OF PROCEDURE: The patient was placed in a slight Trendelenburg position and the left neck and chest where then prepped and draped in the usual sterile fashion. Local anesthesia infiltrated the left infraclavicular area and an attempt was done to cannulate the left subclavian vein, but was unable to do so because the is quite muscular and the needle was not long enough to go done to the subclavian vein. This procedure was then terminated. Next with the use of the ultrasound the left internal jugular vein was then identified and anesthesia infiltrated just above the internal jugular vein. The internal jugular vein was subsequently punctured and a guidewire passed through the needle towards the area of the superior vena cava. The guidewire was placed through the needle and the needle removed. The puncture site was then enlarged and dilated. A triple-lumen catheter was then inserted through the guidewire to a distance of about 17 cm. The catheter was then anchored to the skin with 3-0 silk and all the 3 ports aspirated blood easily and instilled saline easily. A Biopatch placed over the insertion site and a sterile dressing placed over the Biopatch and catheter. The patient tolerated the procedure well. A chest x-ray will be obtained for placement. DICTATING PHYSICIAN: IRIS MATAMOROS M.D. [id number] PHY#: [id number] ID: [id number] JOB#: [id number] ACCT: [id number] cc:IRIS MATAMOROS M.D. >
[2017-12-25 16:59] LABS: CREATINE KINASE MB 27.6 ng/mL (<4.55); TROPONIN I 0.72 ng/mL
[2017-12-25 17:35] LABS: ARTERIAL BLOOD FIO2 50%; ARTERIAL BLOOD H2CO3 1.07 mmol/L (1.05-1.35); ARTERIAL BLOOD HCO3 18.1 mmol/L (20-24); ARTERIAL BLOOD O2 SATURATION 95.4 % (94-98); ARTERIAL BLOOD PCO2 35.6 mmHg (35-45); ARTERIAL BLOOD PH 7.33 (7.35-7.45); ARTERIAL BLOOD PO2 82.1 mmHg (80-100); ARTERIAL BLOOD TOTAL CO2 19.2 mmol/L (23-27)
--- NOTE | 2017-12-25 17:59 | RADIOLOGY REPORT (SQ) ---
EXAM DESCRIPTION: CHEST SINGLE VIEW COMPLETED DATE/TIME: 12/25/2017 4:53 pm REASON FOR STUDY: intubation/tube placement/CL PLACEMENT COMPARISON: Chest radiographs dated 12/24/2017 and 03/24/2011 EXAM PARAMETERS: NUMBER OF VIEWS: One view. TECHNIQUE: Single frontal radiographic view of the chest acquired. RADIATION DOSE: NA LIMITATIONS: None. FINDINGS: LUNGS AND PLEURA: Somewhat improved aeration of the right upper lobe. Otherwise stable pu lmonary examination. Persistent left-sided pleural effusion. No pneumothorax. MEDIASTINUM AND HILAR STRUCTURES: Stable. HEART AND VASCULAR STRUCTURES: Stable. BONES: No acute findings. HARDWARE: Endotracheal tube terminates approximately 3 cm cranial to the thelma. Left-sided cervical vascular access catheter terminates in the region of the cavoatrial junction. An enteric tube is se en along the expected course of the esophagus, terminating subdiaphragmatically out of the field of v iew. OTHER: No other significant finding. IMPRESSION: 1. Slight radiographic improvement in right upper lobe aeration; otherwise stable pulmo nary examination. 2. Endotracheal tube, enteric tube, and central vascular access catheter without evidence of complic ation. TECHNICAL DOCUMENTATION: JOB ID: [id number] [employer]- All Rights Reserved Reading location - IP/workstation name: [email or web address]
--- NOTE | 2017-12-25 18:02 | XCELERA REPORT ---
[address] [address] Transthoracic Echocardiogram Report Name: CAROLYN CHOPRA Age: 72 yrs Gender: Male : 1945 Patient Status: Inpatient Patient Location: ICU^605A Study Date: 12/25/2017 02:05 PM Procedure: A complete two-dimensional transthoracic echocardiogram was performed (2D, M-mode, spectral and color flow Doppler). The study was technically difficult with many images being suboptimal in quality. Reason For Study: elevated troponins, possible nstemi, chf Ordering Physician: ELLE WALSH Performed By: Nelda Tompkins Interpretation Summary The left ventricular ejection fraction is normal. There is moderate concentric left ventricular hypertrophy. The left ventricle is grossly normal size. LV diastolic function could not be adequately assessed. Regional wall motion abnormalities cannot be excluded due to limited visualization. The right ventricle is mildly dilated. The right ventricular systolic function is normal. The right ventricle appears to be hypertrophied The left atrium is mildly dilated. The right atrium is normal in size There is a mild amount of mitral regurgitation There is no mitral valve stenosis. There is no aortic valve stenosis No aortic regurgitation is present. There is a trace or physiologic amount of tricuspid regurgitation Tricuspid regurgitation jet envelope not well defined to measure RV systolic pressure accurately. The aortic root is not well visualized. The inferior vena cava was not well visualized Minimal pericardial effusion. MMode/2D Measurements & Calculations RVDd: 3.7 cm LVIDd: 4.3 cm FS: 32.3 % Ao root diam: 2.8 cm IVSd: 1.1 cm LVIDs: 2.9 cm EDV(Teich): 82.6 ml Ao root area: 6.0 cm2 LVPWd: 1.3 cm ESV(Teich): 32.3 ml EF(Teich): 60.9 % Doppler Measurements & Calculations MV E max christian: MV dec slope: Ao V2 max: LV V1 max P.3 cm/sec 146.3 cm/sec 5.4 mmHg MV A max christian: 726.2 cm/sec2 Ao max PG: LV V1 max: 66.6 cm/sec MV dec time: 0.14 sec8.6 mmHg 115.8 cm/sec MV E/A: 1.6 PA V2 max: TR max christian: 105.7 cm/sec 200.6 cm/sec PA max P.5 mmHg TR max P.1 mmHg Left Ventricle The left ventricle is grossly normal size. There is moderate concentric left ventricular hypertrophy. The left ventricular ejection fraction is normal. LV diastolic function could not be adequately assessed. Regional wall motion abnormalities cannot be excluded due to limited visualization. Right Ventricle The right ventricle is mildly dilated. The right ventricle appears to be hypertrophied. The right ventricular systolic function is normal. Atria The right atrium is normal in size. The left atrium is mildly dilated. Interarterial septum not well visualized and not well dopplered. Cannot comment on ASD/PFO presence. Mitral Valve The mitral valve leaflets are sclerotic, but show no functional abnormalities. There is no mitral valve stenosis. There is a mild amount of mitral regurgitation. Aortic Valve The aortic valve is not well visualized secondary to technical limitations. The aortic valve opens well. There is no aortic valve stenosis. No aortic regurgitation is present. Tricuspid Valve The tricuspid valve is not well visualized secondary to technical limitations. There is no tricuspid stenosis. There is a trace or physiologic amount of tricuspid regurgitation. Tricuspid regurgitation jet envelope not well defined to measure RV systolic pressure accurately. Pulmonic Valve The pulmonic valve is not well visualized. Great Vessels The aortic root is not well visualized. The inferior vena cava was not well visualized. Effusions Minimal pericardial effusion. : ELLE WALSH Shyamal
[2017-12-25 18:18] VITALS: BP 101/55
[2017-12-26] MEDS ORDERED: LEVOFLOXACIN 500 MG/D5W RTU 500 MG/100 ML RTUPB IV SCH (10:00)
== END 2017-12-25 18:10 | disposition short-term general hospital (02) | DRG 208 ==
LOC: ER 08:47 → EH 14:04 → 3W 16:22 → ICU 23:38 → 3W 23:41 → ICU 12-25
PROVIDERS: ADMIT Family Medicine; ATTEND Family Medicine
PROC: 3E0F73Z Introduction of Anti-inflammatory into Respiratory Tract, Via Natural or Artificial Opening (ICD-10-PCS; 2017-12-24)
PROC: 5A1935Z Respiratory Ventilation, Less than 24 Consecutive Hours (ICD-10-PCS; principal; 2017-12-25)
PROC: 0BH17EZ Insertion of Endotracheal Airway into Trachea, Via Natural or Artificial Opening (ICD-10-PCS; 2017-12-25)
PROC: 5A09357 Assistance with Respiratory Ventilation, Less than 24 Consecutive Hours, Continuous Positive Airway Pressure (ICD-10-PCS; 2017-12-25)
PROC: 02HV33Z Insertion of Infusion Device into Superior Vena Cava, Percutaneous Approach (ICD-10-PCS; 2017-12-25)
PROC: B548ZZA Ultrasonography of Superior Vena Cava, Guidance (ICD-10-PCS; 2017-12-25)
DX: J18.9 Pneumonia, unspecified organism (principal); I21.4 Non-ST elevation (NSTEMI) myocardial infarction; I63.312 Cerebral infarction due to thrombosis of left middle cerebral artery; G81.91 Hemiplegia, unspecified affecting right dominant side; N18.4 Chronic kidney disease, stage 4 (severe); N17.9 Acute kidney failure, unspecified; E11.22 Type 2 diabetes mellitus with diabetic chronic kidney disease; I12.9 Hypertensive chronic kidney disease with stage 1 through stage 4 chronic kidney disease, or unspecified chronic kidney disease; M1A.09X1 Idiopathic chronic gout, multiple sites, with tophus (tophi); W18.12XA Fall from or off toilet with subsequent striking against object, initial encounter; W18.2XXA Fall in (into) shower or empty bathtub, initial encounter; Y92.012 Bathroom of single-family (private) house as the place of occurrence of the external cause; K44.9 Diaphragmatic hernia without obstruction or gangrene; E78.00 Pure hypercholesterolemia, unspecified; Z96.652 Presence of left artificial knee joint; F17.210 Nicotine dependence, cigarettes, uncomplicated; I45.10 Unspecified right bundle-branch block; I95.9 Hypotension, unspecified; Z91.81 History of falling; Z79.82 Long term (current) use of aspirin; Z79.899 Other long term (current) drug therapy; Z83.3 Family history of diabetes mellitus; Z82.49 Family history of ischemic heart disease and other diseases of the circulatory system
CPT/HCPCS: 31500; 36415; 70450; 71045; 78582; 80048; 80053; 81001; 82550; 82553; 82803; 82962; 83525; 83735; 83880; 84484; 84681; 85025; 85027; 85379; 87040; 87070; 87077; 87086; 87186; 87205; 93005; 93010; 93306; 94002; 94640; 94660; 96365; 96372; 99291; A9540; A9567; C1751; C1758; J0696; J1940; J1956; J2270; J3490; J7030; J7620; Q9969

== ENCOUNTER → 2020-02-15 | Outpatient (CLI) | payer MEDICARE, OTHER ==
--- NOTE | 2020-02-15 16:25 | RADIOLOGY REPORT (SQ) ---
EXAM DESCRIPTION: ARTERIAL LOWER EXTREM UNILAT IMAGES COMPLETED DATE/TIME: 02/15/2020 3:57 pm REASON FOR STUDY: ATHEROSCLEROSIS I70.211 ATHSCL [place] ARTERIES OF EXTRM W INTRMT LENIN, RIGH COMPARISON: None. TECHNIQUE: Dynamic and static boothe scale and color images acquired of the right lower extremity rambo beckie. Additional selected spectral images recorded. LIMITATIONS: None. FINDINGS: RIGHT LEG: INFLOW ARTERIES: Normal, no obstruction evident. FEMORAL ARTERIES:Multiphasic waveforms. Normal, no velocity elevation to suggest focal stenosis. Norm al color Doppler evaluation. No aneurysm. POPLITEAL ARTERY:Multiphasic waveforms. Normal, no velocity elevation to suggest focal stenosis. Norm al color Doppler evaluation. No aneurysm. PATENT TIBIOPERONEAL TRUNK AND 3 VESSEL RUNOFF: Yes, normal vessels. OTHER: No other significant finding. IMPRESSION: NORMAL RIGHT LOWER EXTREMITY ARTERIAL DOPPLER. TECHNICAL DOCUMENTATION: JOB ID: [id number] 2010 [employer]- All Rights Reserved Reading location - IP/workstation name: [email or web address]
== END ==
LOC: SP 14:25
PROVIDERS: ATTEND Family Medicine
DX: I70.211 Atherosclerosis of native arteries of extremities with intermittent claudication, right leg (principal)
CPT/HCPCS: 93926